=== PATIENT | female | born 1990 | race Caucasian/White ===

== ENCOUNTER 2019-08-19 17:46 | Emergency (ER) | payer OTHER ==
--- NOTE | 2019-08-19 18:04 | ER Document Report ---
ED Medical Screen (RME) - General Chief Complaint: Abdominal Pain Stated Complaint: ABDOMINAL PAIN Time Seen by Provider: 08/19/19 18:00 Mode of Arrival: Ambulatory Information source: Patient Notes: Patient presents stating that she is although has only had a urine test thus far. Patient reports pelvic cramping that started this evening. No vaginal bleeding or discharge. No urinary symptoms. Patient is G8, P0. I have greeted and performed a rapid initial assessment of this patient. A comprehensive ED assessment and evaluation of the patient, analysis of test res ults and completion of the medical decision making process will be conducted by additional ED providers. - Related Data Allergies/Adverse Reactions: morphine Allergy (Verified 08/19/19 17:56) Past Medical History - Social History Frequency of alcohol use: None Drug Abuse: None Physical Exam - Vital signs Vitals: Temp Pulse Resp BP Pulse Ox 97.8 F 68 18 134/77 H 98 08/19/19 17:50 08/19/19 17:50 08/19/19 17:50 08/19/19 17:50 08/19/19 17:50 - Abdominal Tenderness: Tender - Lower pelvic tenderness Course - Vital Signs Vital signs: Temp Pulse Resp BP Pulse Ox 97.8 F 68 18 134/77 H 98 08/19/19 17:50 08/19/19 17:50 08/19/19 17:50 08/19/19 17:50 08/19/19 17:50
[2019-08-19 18:34] LABS: ABSOLUTE EOSINOPHILS # (AUTO) 0.1 10^3/uL (0.0-0.6); ABSOLUTE LYMPHOCYTES (AUTO) 2.5 10^3/uL (0.5-4.7); ABSOLUTE MONOCYTES (AUTO) 0.5 10^3/uL (0.1-1.4); ABSOLUTE NEUT (AUTO) 4.6 10^3/uL (1.7-8.2); BASOPHILS % (AUTO) 0.3 % (0-2); HEMATOCRIT 43.1 % (36.0-47.0); HEMOGLOBIN 14.9 g/dL (12.0-15.5); LYMPHOCYTES % (AUTO) 32.4 % (13-45); MEAN CORPUSCULAR HEMOGLOBIN 30.7 pg (27.0-33.4); MEAN CORPUSCULAR HGB CONC 34.5 g/dL (32.0-36.0); MEAN CORPUSCULAR VOLUME 89 fl (80-97); MONOCYTES % (AUTO) 6.9 % (3-13); PLATELET COUNT 227 10^3/uL (150-450); RED BLOOD COUNT 4.84 10^6/uL (3.72-5.28); RED CELL DISTRIBUTION WIDTH 13.1 % (11.5-14.0); SEGMENTED NEUTROPHILS % (AUTO) 59.4 % (42-78); TOTAL CELLS COUNTED % (AUTO) 100 %; WHITE BLOOD COUNT 7.7 10^3/uL (4.0-10.5)
[2019-08-19 18:37] LABS: APPEARANCE,URINE CLEAR; BILIRUBIN,URINE NEGATIVE (NEGATIVE); COLOR,URINE YELLOW; GLUCOSE, URINE NEGATIVE (NEGATIVE); KETONES,URINE NEGATIVE (NEGATIVE); PROTEIN,URINE NEGATIVE (NEGATIVE); URINE SPECIFIC GRAVITY 1.008; UROBILINOGEN,URINE NEGATIVE mg/dL (<2.0)
--- NOTE | 2019-08-19 19:16 | RADIOLOGY REPORT (SQ) ---
EXAM DESCRIPTION: U/S OB TRANSVAGINAL W/O DOP COMPLETED DATE/TIME: 08/19/2019 7:05 pm REASON FOR STUDY: pelvic cramping COMPARISON: None. TECHNIQUE: Transvaginal static and realtime grayscale images acquired of the pelvis. Additional latrice cted spectral and color Doppler images recorded. All images stored on PACs. bHCG: Pending. CLINICAL DATES: LMP 07/21/2019. 4 weeks 1 day. LIMITATIONS: None. FINDINGS: No identifiable intrauterine gestation is seen. UTERUS: No masses. No anomalies. CERVICAL LENGTH: 2.1 cm. Closed. RIGHT ADNEXA: Normal ovary with normal vascular flow. 3.7 x 2.5 x 2.7 cm. There is a 19 x 17 x 15 m m cyst. No adnexal free fluid. No adnexal masses. LEFT ADNEXA: Normal ovary with normal vascular flow. 2.7 x 1.6 x 2.6 cm. No adnexal free fluid. No adnexal masses. FREE FLUID: None. OTHER: No other significant finding. IMPRESSION: There is no identifiable intrauterine at this time. Follow-up as clinically i ndicated. TECHNICAL DOCUMENTATION: JOB ID: [id number] [employer]- All Rights Reserved Reading location - IP/workstation name: [email or web address]
--- NOTE | 2019-08-19 21:25 | ER Document Report ---
ED General - General Chief Complaint: Abdominal Pain Stated Complaint: ABDOMINAL PAIN Time Seen by Provider: 08/19/19 18:00 Mode of Arrival: Ambulatory Notes: 29-year-old female who is a G8, P0 with 2 ectopic pregnancies both of which were treated with excisional surgery presents the emergency department complaining of a positive test at home and right lower quadrant abdominal pain. Last menstrual period was 07/21/2019. Patient states she was told that anytime she finds that she is she needs to immediately come to the emergency department to be checked for ectopic and to receive a shot of progesterone. Patient has been unable to contact her EXCHANGE ADMINISTRATOR in [place] and does not have local follow-up until a week from today with [place] [facility] EXCHANGE ADMINISTRATOR on Monday. She has not yet seen them. Patient does not know exactly what dose or what form of progesterone her prior EXCHANGE ADMINISTRATOR wanted her to have. Denies any vaginal bleeding, denies any nausea, denies any other symptoms. - Related Data Allergies/Adverse Reactions: morphine Allergy (Verified 08/19/19 17:56) Past Medical History - General Information source: Patient - Social History Smoking Status: Current Every Day Smoker Frequency of alcohol use: None Drug Abuse: None Family History: Reviewed & Not Pertinent Patient has suicidal ideation: No Patient has homicidal ideation: No Past Surgical History: Reports: Hx Oral Surgery, Hx Tonsillectomy Review of Systems - Review of Systems Constitutional: No symptoms reported Gastrointestinal: See HPI Genitourinary: No symptoms reported Female Genitourinary: See HPI -: Yes All other systems reviewed and negative Physical Exam - Vital signs Vitals: Temp Pulse Resp BP Pulse Ox 97.8 F 68 18 134/77 H 98 08/19/19 17:50 08/19/19 17:50 08/19/19 17:50 08/19/19 17:50 08/19/19 17:50 Interpretation: Normal - Notes Notes: GENERAL: Alert, interacts well. No acute distress. HEAD: Normocephalic, atraumatic EYES: Pupils equal, round and reactive to light, extraocular movements intact. ENT: Oral mucosa moist, tongue midline. NECK: Full range of motion, supple, trachea midline. LUNGS: Clear to auscultation bilaterally, no wheezes, rales or rhonchi, no respiratory distress. HEART: Regular rate and rhythm, no murmurs, gallops, rubs. ABDOMEN: Soft, nontender, nondistended, bowel sounds present in all 4 quadrants. EXTREMITIES: Moves all 4 extremities spontaneously, no edema, radial and dorsalis pedis pulses 2/4 bilaterally. No cyanosis. NEUROLOGICAL: Alert and oriented x3, normal speech. PSYCH: Normal mood, normal affect. SKIN: Warm, Dry, normal turgor, no rashes or lesions noted. Course - Re-evaluation Re-evalutation: 08/19/19 21:23 CBC unremarkable, quantitative hCG is 52.43, urinalysis unremarkable, patient is having no bleeding so she would not need RhoGam. OB ultrasound visualizes both ovaries and does not see any signs of ectopic or intrauterine . With her quant so low we would not expect to see an IUP or an ectopic at this point anyway. Patient is stable, no indication that she has a ruptured ectopic at this time. Patient will need to return in 48 hours to have a repeat quant performed. Typically would have they will do this as an outpatient however as her repeat quant will not be due until Monday evening just prior to I am having her return to the emergency department for repeat quant and recheck. I did discuss the case with Dr. 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 He states that he can use 200 mg of progesterone vaginally twice a day. Patient will be discharged to home. - Vital Signs Vital signs: Temp Pulse Resp BP Pulse Ox 97.8 F 68 18 134/77 H 98 08/19/19 17:50 08/19/19 17:50 08/19/19 17:50 08/19/19 17:50 08/19/19 17:50 - Laboratory Result Diagrams: 08/19/19 18:11 Laboratory results interpreted by me: 08/19/19 18:11 Beta HCG, Quant 52.43 H Discharge - Discharge Clinical Impression: Pelvic pain affecting in first trimester, antepartum Condition: Stable Disposition: HOME, SELF-CARE Additional Instructions: Today your quantitative hCG was 52. You will need to return in approximately 48 to 72 hours to have your hormone level rechecked. Today we did not see any signs of intrauterine or ectopic on ultrasound. I have discussed your case with her EXCHANGE ADMINISTRATOR and he recommends starting vaginal progesterone 200 mg in the vagina twice a day until you follow-up with your EXCHANGE ADMINISTRATOR as an outpatient. Please return for worsening pain, vaginal bleeding, lightheadedness or any new or concerning symptoms. Prescriptions: Progesterone, Micronized [Prometrium] 200 mg VG BID #30 capsule Forms: Follow-Up Laboratory Testing
[2019-08-19 21:45] VITALS: BP 116/70
== END 2019-08-19 21:45 | disposition home or self-care (01) ==
LOC: ER 17:46
DX: O26.891 Other specified pregnancy related conditions, first trimester (principal); R10.2 Pelvic and perineal pain; R10.31 Right lower quadrant pain; O99.331 Smoking (tobacco) complicating pregnancy, first trimester; F17.200 Nicotine dependence, unspecified, uncomplicated; Z88.5 Allergy status to narcotic agent; Z88.6 Allergy status to analgesic agent; Z87.59 Personal history of other complications of pregnancy, childbirth and the puerperium; Z3A.01 Less than 8 weeks gestation of pregnancy
CPT/HCPCS: 36415; 76817; 81001; 84702; 85025; 86900; 86901; 99284

== ENCOUNTER → 2019-08-21 | Outpatient (CLI) | payer OTHER | LOC: LAB 18:54 | PROVIDERS: ATTEND Emergency Medicine | DX: O26.899 Other specified pregnancy related conditions, unspecified trimester (principal) | CPT/HCPCS: 36415; 84702 ==

== ENCOUNTER 2019-08-28 21:32 | Day surgery (SDC) | payer OTHER ==
[2019-08-28] MEDS ORDERED: ONDANSETRON HCL INJ/PF 4 MG/2 ML SDV IV ONE (23:06)
[2019-08-28] MEDS ORDERED: FENTANYL CITRATE INJ/PF 100 MCG/2 ML AMPUL IV ONE ×2 (23:06→23:57)
--- NOTE | 2019-08-28 23:12 | ER Document Report ---
ED Medical Screen (RME) - General Chief Complaint: Abdominal Pain Stated Complaint: POSSIBLE MISCARRIAGE 5 WEEKS Time Seen by Provider: 08/28/19 22:58 Notes: 29-year-old G8, P0 female with history of ectopic x2 with a salpingectomy unknown side presents to the emergency department in acute distress with abdominal pain, vaginal bleeding that started this evening. Patient LMP July 21, had a positive test here previous Monday, was seen here subsequently for abdominal pain and her hCG level doubled in the interval time. Patient's pain is more focused on the left side, has nausea vomiting. Exam: In acute distress hunched over on the ground leaning against the chair, lungs are clear in all baxter, unable to obtain abdominal exam I have greeted and performed a rapid initial assessment of this patient. A comprehensive ED assessment and evaluation of the patient, analysis of test results and completion of medical decision making process will be conducted by an additional ED providers. TRAVEL OUTSIDE OF THE [place] IN LAST 30 DAYS: No - Related Data Allergies/Adverse Reactions: morphine Allergy (Verified 08/19/19 17:56) Past Medical History Past Surgical History: Reports: Hx Oral Surgery, Hx Tonsillectomy Physical Exam - Vital signs Vitals: Temp Pulse Resp BP Pulse Ox 98 F 77 22 H 113/77 99 08/28/19 22:12 08/28/19 22:12 08/28/19 22:12 08/28/19 22:12 08/28/19 22:12 Course - Vital Signs Vital signs: Temp Pulse Resp BP Pulse Ox 98 F 77 22 H 113/77 99 08/28/19 22:57 08/28/19 22:57 08/28/19 22:57 08/28/19 22:57 08/28/19 22:57
[2019-08-28 23:41] LABS: ABSOLUTE EOSINOPHILS # (AUTO) 0.1 10^3/uL (0.0-0.6); ABSOLUTE LYMPHOCYTES (AUTO) 1.7 10^3/uL (0.5-4.7); ABSOLUTE MONOCYTES (AUTO) 0.5 10^3/uL (0.1-1.4); ABSOLUTE NEUT (AUTO) 7.9 10^3/uL (1.7-8.2); BASOPHILS % (AUTO) 0.1 % (0-2); EOSINOPHILS % (AUTO) 0.5 % (0-6); HEMATOCRIT 38.7 % (36.0-47.0); HEMOGLOBIN 13.5 g/dL (12.0-15.5); LYMPHOCYTES % (AUTO) 16.5 % (13-45); MEAN CORPUSCULAR HEMOGLOBIN 30.8 pg (27.0-33.4); MEAN CORPUSCULAR HGB CONC 34.9 g/dL (32.0-36.0); MEAN CORPUSCULAR VOLUME 88 fl (80-97); MONOCYTES % (AUTO) 5.1 % (3-13); PLATELET COUNT 234 10^3/uL (150-450); RED BLOOD COUNT 4.39 10^6/uL (3.72-5.28); RED CELL DISTRIBUTION WIDTH 12.6 % (11.5-14.0); SEGMENTED NEUTROPHILS % (AUTO) 77.8 % (42-78); TOTAL CELLS COUNTED % (AUTO) 100 %; WHITE BLOOD COUNT 10.2 10^3/uL (4.0-10.5)
[2019-08-28 23:52] LABS: ALBUMIN 4.6 g/dL (3.5-5.0); ALKALINE PHOSPHATASE 42 U/L (38-126); ANION GAP 12 (5-19); ASPARTATE AMINO TRANSFERASE 21 U/L (14-36); BILIRUBIN,DIRECT 0.1 mg/dL (0.0-0.4); BILIRUBIN,TOTAL 0.7 mg/dL (0.2-1.3); BLOOD UREA NITROGEN 9 mg/dL (7-20); CALCIUM 10.3 mg/dL (8.4-10.2); CARBON DIOXIDE 24 mmol/L (22-30); CHLORIDE 103 mmol/L (98-107); GLUCOSE 118 mg/dL (75-110); TOTAL PROTEIN 7.7 g/dL (6.3-8.2)
[2019-08-28] MEDS ORDERED: NORMAL SALINE 1000 ML 1,000 ML IV ONE (23:57)
--- NOTE | 2019-08-29 00:01 | ER Document Report ---
ED GI/ - General Chief Complaint: Abdominal Pain Stated Complaint: POSSIBLE MISCARRIAGE 5 WEEKS Time Seen by Provider: 08/28/19 22:58 Notes: Patient is a 29-year-old female, with a history of 2 ectopic pregnancies and a previous salpingectomy (unknown side per patient) that comes emergency department for chief complaint of sudden onset sharp pain in the lower abdomen at about 6:30 PM tonight, she states this is worsened and now she is getting a swelling sensation. She got nausea and she felt lightheaded in the waiting room as well. Patient has had positive test with low hCG, LMP was July 21. She normally follows with [facility] DIRECT[facility] but is not yet established with this . She denies medical history otherwise. TRAVEL OUTSIDE OF THE [place] IN LAST 30 DAYS: No - Related Data Allergies/Adverse Reactions: morphine Allergy (Verified 08/19/19 17:56) Past Medical History - General Information source: Patient - Social History Smoking Status: Former Smoker Frequency of alcohol use: None Drug Abuse: None Lives with: Family Family History: Reviewed & Not Pertinent Patient has suicidal ideation: No Patient has homicidal ideation: No Past Surgical History: Reports: Hx Gynecologic Surgery - Fallopian tube removal with ectopic , Hx Oral Surgery, Hx Tonsillectomy Review of Systems - Review of Systems Constitutional: No symptoms reported EENT: No symptoms reported Cardiovascular: No symptoms reported Respiratory: No symptoms reported Gastrointestinal: See HPI Genitourinary: See HPI Female Genitourinary: See HPI Musculoskeletal: No symptoms reported Skin: No symptoms reported Hematologic/Lymphatic: No symptoms reported Neurological/Psychological: No symptoms reported Physical Exam - Vital signs Vitals: Temp Pulse Resp BP Pulse Ox 98 F 77 22 H 113/77 99 08/28/19 22:12 08/28/19 22:12 08/28/19 22:12 08/28/19 22:12 08/28/19 22:12 - Notes Notes: GENERAL: Alert, appears uncomfortable and is trying not to move HEAD: Normocephalic, atraumatic. EYES: Pupils equal, round, and reactive to light. Extraocular movements intact. ENT: Oral mucosa moist, tongue midline. Oropharynx unremarkable. Airway patent. LUNGS: Clear to auscultation bilaterally, no wheezes, rales, or rhonchi. No respiratory distress. HEART: Regular rate and rhythm. No murmur ABDOMEN: There is some guarding in the general lower abdomen with peritoneal signs. Obvious pain with any movement. Upper abdomen benign. GENITOURINARY: Deferred EXTREMITIES: Moves all 4 extremities spontaneously. No edema, normal radial and dorsalis pedis pulses bilaterally. No cyanosis. BACK: no cervical, thoracic, lumbar midline tenderness. No saddle anesthesia, normal distal neurovascular exam. Moves all extremities in full range of motion. NEUROLOGICAL: Alert and oriented x3. Normal speech. Cranial nerves II through XII grossly intact. SKIN: Slightly pale Course - Re-evaluation Re-evalutation: Patient is very tender on exam in the general lower abdomen, she is clearly uncomfortable in appearance, she actually appears to have peritoneal signs as well. Clinical picture and history is very concerning for ruptured ectopic . Patient placed on monitor, obtained IV access, fortunately patient's blood pressure is unremarkable and she is not tachycardic. She is slightly pale in appearance. CBC unremarkable with hemoglobin of 13.5, chemistry unremarkable. hCG is concerning at greater than 1700, ultrasound appears to show a large amount of free fluid and no IUP, report is officially pending. Discussed with patient, discussed with her likely ectopic , she be kept n.p.o. and I will contact NEWS LIBRARY DIRECTOR. Ultrasound showing no intrauterine and large pelvic fluid. I called and spoke with Dr. johnson, she states she will see the patient. Dr. Johnson has seen the patient and is taken the patient to the operating room. - Vital Signs Vital signs: Temp Pulse Resp BP Pulse Ox 97.4 F 71 18 107/57 L 100 08/29/19 06:09 08/29/19 06:56 08/29/19 06:56 08/29/19 06:56 08/29/19 06:56 - Laboratory Result Diagrams: 08/28/19 23:17 08/28/19 23:17 Laboratory results interpreted by me: 08/28/19 08/28/19 23:11 23:17 Glucose 118 H Calcium 10.3 H Beta HCG, Quant 1762.20 H Urine Ketones 20 H Urine Blood MODERATE H Discharge - Discharge Clinical Impression: Ruptured ectopic Condition: Good Disposition: ADMITTED INPATIENT Admitting Provider: [facility] Unit Admitted: OR
--- NOTE | 2019-08-29 00:23 | RADIOLOGY REPORT (SQ) ---
CLINICAL HISTORY: abd pain, vag bleeding, +preg, hx ectopic x 2 COMPARISON: None. TECHNIQUE: US TRANSVAGINAL on 08/28/2019 11:07 PM [facility] FINDINGS: Uterus measures 7.6 cm. There is no evidence of IUP. There is moderate free pelvic fluid, somewhat complex. Both ovaries are unremarkable with patent flow. IMPRESSION: No evidence of IUP. Complex free pelvic fluid raises the possibility of ruptured ectopic , although definitive ectopic is not clearly seen. Correlate with beta hCG levels.
[2019-08-29 00:33] LABS: APPEARANCE,URINE CLOUDY; BILIRUBIN,URINE NEGATIVE (NEGATIVE); COLOR,URINE YELLOW; GLUCOSE, URINE NEGATIVE (NEGATIVE); KETONES,URINE 20 mg/dL (NEGATIVE); LEUKOCYTE ESTERASE,URINE NEGATIVE (NEGATIVE); NITRITE,URINE NEGATIVE (NEGATIVE); PROTEIN,URINE NEGATIVE (NEGATIVE); URINE SPECIFIC GRAVITY 1.013; UROBILINOGEN,URINE NEGATIVE mg/dL (<2.0)
[2019-08-29] MEDS ORDERED: MIDAZOLAM 2 MG/2 ML INJ ONE (01:27)
[2019-08-29] MEDS ORDERED: PROPOFOL INJ 200 MG/20 ML VIAL IV ONE (01:27)
[2019-08-29] MEDS ORDERED: ONDANSETRON HCL INJ/PF 4 MG/2 ML SDV ONE (01:27)
[2019-08-29] MEDS ORDERED: DEXAMETHASONE SOD PHOSPHATE INJ 4 MG/1 ML VIAL ONE (01:27)
[2019-08-29] MEDS ORDERED: FENTANYL CITRATE INJ/PF 250 MCG/5 ML AMPULE ONE (01:27)
--- NOTE | 2019-08-29 01:31 | PDOC H&P ---
History of Present Illness Admission Date/PCP: kendrick Patient complains of: Abdominal pain History of Present Illness: LEONARDO ALMONTE is a 29 year old G8, P0 presented to [facility] ED complaining of abdominal pain which started at 6:30 PM. Patient stated that she started bleeding at 530 which lasted approximately 45 minutes. This patient has a known early and usually follows up with [facility]. Her last menstrual period was July 21. She states that she is Rh-. She gives history of 3 ruptured ectopic pregnancies and 4 spontaneous abortions. Past Medical History LMP: 07/21/19 Past Surgical History Past Surgical History: Reports: Tonsillectomy, Other - Laparoscopic evacuation of ectopic x3 Social History Lives with: Family Smoking Status: Former Smoker Electronic Cigarette use?: No Frequency of Alcohol Use: Rare Hx Recreational Drug Use: No Family History Family History: Reviewed & Not Pertinent Parental Family History Reviewed: Yes Children Family History Reviewed: NA Sibling(s) Family History Reviewed.: NA Medication/Allergy Home Medications: Progesterone, Micronized [Prometrium] 200 mg VG BID #30 capsule 08/19/19 Allergies/Adverse Reactions: morphine Allergy (Verified 08/19/19 17:56) Review of Systems Constitutional: PRESENT: as per HPI Cardiovascular: ABSENT: as per HPI, chest pain, dyspnea on exertion, edema, orthropnea, palpitations, other Respiratory: ABSENT: as per HPI, cough, dyspnea, hemoptysis, sputum, other Gastrointestinal: PRESENT: abdominal pain Physical Exam - Physical Exam Vital Signs: Temp Pulse Resp BP Pulse Ox 97.8 F 82 17 135/76 H 99 08/29/19 01:09 08/29/19 01:09 08/29/19 01:09 08/29/19 01:09 08/29/19 01:09 Intake & Output 08/27/19 08/28/19 08/29/19 06:59 06:59 06:59 Weight 52.163 kg General appearance: PRESENT: no acute distress Respiratory exam: PRESENT: clear to auscultation john Cardiovascular exam: PRESENT: RRR GI/Abdominal exam: PRESENT: normal bowel sounds, soft - Diffuse tenderness Extremities exam: ABSENT: calf tenderness, clubbing, full ROM, joint swelling, pedal edema, tenderness, +1 edema, +2 edema, other Result Laboratory Results: 08/28/19 23:17 08/28/19 23:17 08/28/19 08/28/19 08/28/19 23:11 23:17 23:17 WBC 10.2 RBC 4.39 Hgb 13.5 Hct 38.7 MCV 88 MCH 30.8 MCHC 34.9 RDW 12.6 Plt Count 234 Seg Neutrophils % 77.8 Sodium 139.2 Potassium 4.0 Chloride 103 Carbon Dioxide 24 Anion Gap 12 BUN 9 Creatinine 0.66 Est GFR ( Amer) > 60 Glucose 118 H Calcium 10.3 H Total Bilirubin 0.7 AST 21 Alkaline Phosphatase 42 Total Protein 7.7 Albumin 4.6 Urine Color YELLOW Urine Appearance CLOUDY Urine pH 8.0 Ur Specific [place] 1.013 Urine Protein NEGATIVE Urine Glucose (UA) NEGATIVE Urine Ketones 20 H Urine Blood MODERATE H Urine Nitrite NEGATIVE Ur Leukocyte Esterase NEGATIVE Urine WBC (Auto) 5 Urine RBC (Auto) 10 Blood Type 08/28/19 23:17 WBC RBC Hgb Hct MCV MCH MCHC RDW Plt Count Seg Neutrophils % Sodium Potassium Chloride Carbon Dioxide Anion Gap BUN Creatinine Est GFR ( Amer) Glucose Calcium Total Bilirubin AST Alkaline Phosphatase Total Protein Albumin Urine Color Urine Appearance Urine pH Ur Specific [place] Urine Protein Urine Glucose (UA) Urine Ketones Urine Blood Urine Nitrite Ur Leukocyte Esterase Urine WBC (Auto) Urine RBC (Auto) Blood Type O NEGATIVE Impressions: Transvaginal US 08/28/19 23:07 IMPRESSION: No evidence of IUP. Complex free pelvic fluid raises the possibility of ruptured ectopic , although definitive ectopic is not clearly seen. Correlate with beta hCG levels. Assessment & Plan - Diagnosis (1) Ruptured ectopic Is this a current diagnosis for this admission?: Yes (2) Type O blood, Rh negative Is this a current diagnosis for this admission?: Yes (3) with poor obstetric history Is this a current diagnosis for this admission?: Yes - Time Time Spent: 30 to 50 Minutes Anticipated discharge: Home Within: within 24 hours - Plan Summary Plan Summary: 1. Consent for diagnostic laparoscopy 2. Hold 2 units of packed red blood cells 3. RhoGam to be administered prior to discharge
[2019-08-29] MEDS ORDERED: BUPIVACAINE HCL 0.25 % INJ/PF (2.5 MG/1 ML) 30 ML VIAL ONE (01:48)
[2019-08-29] MEDS ORDERED: ONDANSETRON HCL INJ/PF 4 MG/2 ML SDV IV PRN (02:26)
[2019-08-29] MEDS ORDERED: PROMETHAZINE HCL INJ 25 MG/1 ML VIAL IV PRN ×2 (02:26)
[2019-08-29] MEDS ORDERED: DIPHENHYDRAMINE HCL 50 MG/ML VIAL IV PRN (02:26)
[2019-08-29] MEDS ORDERED: MEPERIDINE HCL/PF INJ 25 MG/1 ML DISP.SYRIN IV PRN (02:26)
[2019-08-29] MEDS ORDERED: FENTANYL CITRATE INJ/PF 100 MCG/2 ML AMPUL IV PRN ×3 (02:26)
[2019-08-29] MEDS ORDERED: KETOROLAC TROMETHAMINE 60 MG/2 ML SDV ONE (03:30)
[2019-08-29] MEDS ORDERED: ACETAMINOPHEN 1,000 MG/100 ML RTUPB IV ONE ×2 (03:31→05:00)
[2019-08-29] MEDS: HYDROMORPHONE HCL INJ/PF 2 MG/ML AMPULE ONE ×4 (03:32→03:50)
[2019-08-29] MEDS ORDERED: RINGERS SOLUTION,LACTATED 1,000 ML IV PRN (03:34)
[2019-08-29] MEDS ORDERED: OXYCODONE-ACETAMINOPHEN 5-325 MG TABLET PO PRN ×2 (03:34)
[2019-08-29] MEDS ORDERED: KETOROLAC TROMETHAMINE INJ/PF 30 MG/1 ML SDV IV PRN (03:34)
[2019-08-29] MEDS ORDERED: IBUPROFEN 800 MG TABLET PO PRN (03:34)
--- NOTE | 2019-08-29 03:34 | Operative Report ---
Operative Report DATE OF SURGERY: 08/29/19 PREOPERATIVE DIAGNOSIS: 1. Possible ruptured ectopic, unspecified adnexa. 2. O- blood type. 3. Poor obstetric history. 4. History of ectopic x3 POSTOPERATIVE DIAGNOSIS: Same plus ruptured left ectopic OPERATION: Diagnostic laparoscopy with left partial salpingectomy SURGEON: EDITH MONSALVE ANESTHESIA: GA TISSUE REMOVED OR ALTERED: Left partial fallopian tube with ectopic COMPLICATIONS: none QUANTITATIVE BLOOD LOSS: 50 INTRAOPERATIVE FINDINGS: Ruptured left ectopic; Absent right fallopian tube; normal bilateral ovaries and normal uterus PROCEDURE: The patient was taken to the operating room where general anesthesia was ob tained without difficulty. She was then placed in dorsal supine lithotomy position and prepped and draped in the normal sterile fashion. [place] speculum was then placed in the patient's vagina and a sponge stick with a Ray-Brianne was placed in the vagina to provide a means of manipulation of the uterus. I was unsure whether she truly had a ruptured ectopic , since the adnexa was not specified. The speculum was then removed from the patient's cervix and vagina. Attention was then turned to the patient's abdomen where a 5 mm skin incision was then made in the umbilicus. The Optiview trocar with 0 laparoscope was then advanced without difficulty under direct visualization with the Optiview trocar. This was performed while tenting the abdominal wall. Intraperitoneal placement was confirmed by the direct visualization. Pneumoperitoneum was then obtained with approximately 4 L carbon dioxide gas. Survey of the patient's abdomen and pelvis revealed a ruptured left ectopic. There was approximately 50 mL's of blood in the posterior cul-de-sac. It was noted that the right fallopian tube was surgically absent. Two 5 mm lateral ports were placed under direct visualization. The umbilical port was then converted to an 11 mm port. The left fallopian tube was then identified, which contained the ruptured ectopic. It was followed out to the fimbriated end. A PDS Endoloop x 2 was placed at the fimbriated end, abutting the ovary. The section of tube which contained the ectopic was transected and the Endoloops were cut. Hemostasis was noted. The left partial tube, which contained ectopic, was placed in an Endo KELLY bag. The abdomen and pelvis were then copiously irrigated with warm normal saline. The operative site was visualized and noted to be hemostatic. Laparoscopic pictures were taken before and after the procedure. The CO2 gas was then turned off and allowed to escape from the patient's abdomen. All trocars were then removed. The fascia of the umbilical port was closed with 0 Vicryl. The skin at all trocar sites were closed with 4-0 Vicryl in a subcuticular fashion with overlying Dermabond. No antibiotics were indicated for this procedure. After completion of skin closure of the trocar sites, attention was then turned to the vagina where the unstick was removed. Sponge, lap, needle and instrument counts were correct 3. The patient tolerated the procedure well and was taken to the recovery area awake and in stable condition.
[2019-08-29] MEDS ORDERED: HYDROMORPHONE HCL INJ/PF 2 MG/ML AMPULE IV PRN ×2 (03:35→04:50)
[2019-08-29] MEDS ORDERED: KETOROLAC TROMETHAMINE INJ/PF 30 MG/1 ML SDV ONE (03:36)
--- NOTE | 2019-08-29 06:22 | PDOC DISCHARGE SUMMARY ---
Impression - Admit/DC Date/PCP Admission Date/Primary Care Provider: 08/29/19 01:13 Discharge Date: 08/29/19 - Discharge Diagnosis (1) Ruptured ectopic Is this a current diagnosis for this admission?: Yes (2) Type O blood, Rh negative Is this a current diagnosis for this admission?: Yes (3) with poor obstetric history Is this a current diagnosis for this admission?: Yes - Additional Information Resuscitation Status: Full Code Referrals: EDITH BAKER DO [ACTIVE STAFF] - Home Medications: Progesterone, Micronized [Prometrium] 200 mg VG BID #30 capsule 08/19/19 History of Present Illiness History of Present Illness: LEONARDO ALMONTE is a 29 year old G8, P0 presented to [facility] ED complaining of abdominal pain which started at 6:30 PM. Patient stated that she started bleeding at 530 which lasted approximately 45 minutes. This patient has a known early and usually follows up with [place]. Her last menstrual period was July 21. She states that she is Rh-. She gives history of 3 ruptured ectopic pregnancies and 4 spontaneous abortions. Hospital Course Hospital Course: The patient was taken to the operating suite where a diagnostic laparoscopy with left partial salpingectomy with ectopic was excised. She tolerated the procedure well. Patient was sent to the floor, secondary to the fact that the surgery was performed around 0. Otherwise, she was stable for discharge. Physical Exam - Physical Exam Vital Signs: Temp Pulse Resp BP Pulse Ox 98.6 F 74 16 106/51 L 100 08/29/19 05:28 08/29/19 05:28 08/29/19 05:28 08/29/19 05:28 08/29/19 05:28 Intake & Output 08/27/19 08/28/19 08/29/19 06:59 06:59 06:59 Intake Total 2700 Output Total 1150 Balance 1550 Weight 52.163 kg General appearance: PRESENT: no acute distress Respiratory exam: PRESENT: clear to auscultation john Cardiovascular exam: PRESENT: RRR GI/Abdominal exam: PRESENT: normal bowel sounds, soft - Appropriate tenderness; all port site incisions clean/dry/intact Extremities exam: ABSENT: calf tenderness, clubbing, full ROM, joint swelling, pedal edema, tenderness, +1 edema, +2 edema, other Results Laboratory Results: WBC 10.2 10^3/uL (4.0-10.5) 08/28/19 23:17 RBC 4.39 10^6/uL (3.72-5.28) 08/28/19 23:17 Hgb 13.5 g/dL (12.0-15.5) 08/28/19 23:17 Hct 38.7 % (36.0-47.0) 08/28/19 23:17 MCV 88 fl (80-97) 08/28/19 23:17 MCH 30.8 pg (27.0-33.4) 08/28/19 23:17 MCHC 34.9 g/dL (32.0-36.0) 08/28/19 23:17 RDW 12.6 % (11.5-14.0) 08/28/19 23:17 Plt Count 234 10^3/uL (150-450) 08/28/19 23:17 Lymph % (Auto) 16.5 % (13-45) 08/28/19 23:17 [place] % (Auto) 5.1 % (3-13) 08/28/19 23:17 Eos % (Auto) 0.5 % (0-6) 08/28/19 23:17 Baso % (Auto) 0.1 % (0-2) 08/28/19 23:17 Absolute Neuts (auto) 7.9 10^3/uL (1.7-8.2) 08/28/19 23:17 Absolute Lymphs (auto) 1.7 10^3/uL (0.5-4.7) 08/28/19 23:17 Absolute Monos (auto) 0.5 10^3/uL (0.1-1.4) 08/28/19 23:17 Absolute Eos (auto) 0.1 10^3/uL (0.0-0.6) 08/28/19 23:17 Absolute Basos (auto) 0.0 10^3/uL (0.0-0.2) 08/28/19 23:17 Seg Neutrophils % 77.8 % (42-78) 08/28/19 23:17 Sodium 139.2 mmol/L (137-145) 08/28/19 23:17 Potassium 4.0 mmol/L (3.6-5.0) 08/28/19 23:17 Chloride 103 mmol/L (98-107) 08/28/19 23:17 Carbon Dioxide 24 mmol/L (22-30) 08/28/19 23:17 Anion Gap 12 (5-19) 08/28/19 23:17 BUN 9 mg/dL (7-20) 08/28/19 23:17 Creatinine 0.66 mg/dL (0.52-1.25) 08/28/19 23:17 Est GFR ( Amer) > 60 (>60) 08/28/19 23:17 Est GFR (MDRD) Non-Af > 60 (>60) 08/28/19 23:17 Glucose 118 mg/dL (75-110) H 08/28/19 23:17 Calcium 10.3 mg/dL (8.4-10.2) H 08/28/19 23:17 Total Bilirubin 0.7 mg/dL (0.2-1.3) 08/28/19 23:17 Direct Bilirubin 0.1 mg/dL (0.0-0.4) 08/28/19 23:17 Neonat Total Bilirubin Not Reportable 08/28/19 23:17 Neonat Direct Bilirubin Not Reportable 08/28/19 23:17 Neonat Indirect Bili Not Reportable 08/28/19 23:17 AST 21 U/L (14-36) 08/28/19 23:17 ALT 10 U/L (<35) 08/28/19 23:17 Alkaline Phosphatase 42 U/L (38-126) 08/28/19 23:17 Total Protein 7.7 g/dL (6.3-8.2) 08/28/19 23:17 Albumin 4.6 g/dL (3.5-5.0) 08/28/19 23:17 Beta HCG, Quant 1762.20 mIU/mL (0.0-6.15) H 08/28/19 23:17 Total Beta HCG POSITIVE (NEGATIVE) 08/28/19 23:17 Urine Color YELLOW 08/28/19 23:11 Urine Appearance CLOUDY 08/28/19 23:11 Urine pH 8.0 (5.0-9.0) 08/28/19 23:11 Ur Specific [place] 1.013 08/28/19 23:11 Urine Protein NEGATIVE mg/dL (NEGATIVE) 08/28/19 23:11 Urine Glucose (UA) NEGATIVE mg/dL (NEGATIVE) 08/28/19 23:11 Urine Ketones 20 mg/dL (NEGATIVE) H 08/28/19 23:11 Urine Blood MODERATE (NEGATIVE) H 08/28/19 23:11 Urine Nitrite NEGATIVE (NEGATIVE) 08/28/19 23:11 Urine Bilirubin NEGATIVE (NEGATIVE) 08/28/19 23:11 Urine Urobilinogen NEGATIVE mg/dL (<2.0) 08/28/19 23:11 Ur Leukocyte Esterase NEGATIVE (NEGATIVE) 08/28/19 23:11 Urine WBC (Auto) 5 /HPF 08/28/19 23:11 Urine RBC (Auto) 10 /HPF 08/28/19 23:11 Squamous Epi Cells Auto 5 /HPF 08/28/19 23:11 Urine Mucus (Auto) OCC /LPF 08/28/19 23:11 Urine Ascorbic Acid NEGATIVE (NEGATIVE) 08/28/19 23:11 Blood Type O NEGATIVE 08/28/19 23:17 Antibody Screen NEGATIVE 08/28/19 23:17 Rhogam Indicated RHOGAM REQUESTED 08/28/19 23:17 Impressions: Transvaginal US 08/28/19 23:07 IMPRESSION: No evidence of IUP. Complex free pelvic fluid raises the possibility of ruptured ectopic , although definitive ectopic is not clearly seen. Correlate with beta hCG levels. Plan Plan of Treatment: 1. Discharge home 2. Follow-up in the office in 2 weeks for postop exam or sooner if needed 3. Prescriptions for [place] and ibuprofen given Time Spent: Greater than 30 Minutes Stroke Is this a Stroke Patient?: No Acute Heart Failure - Is this a Heart Failure Patient?: No
[2019-08-29 09:57] VITALS: BP 114/67
[2019-08-29] MEDS ORDERED: SUCCINYLCHOLINE CHLORIDE INJ 200 MG/10 ML VIAL ONE (18:34)
[2019-08-29] MEDS ORDERED: ROCURONIUM BROMIDE INJ 50 MG/5 ML VIAL IV ONE (18:34)
== END 2019-08-29 10:25 | disposition home or self-care (01) ==
LOC: ER 21:32 → UNDOADMIN 08-29 01:13 → EH 08-29 01:13 → OROUT 08-29 01:13 → 2N 08-29 04:35 → EH 08-29 04:35 → OROUT 08-29 10:25 → UNDODISIN 08-29 10:25 → ER 08-29 10:25
DX: O00.102 Left tubal pregnancy without intrauterine pregnancy (principal); Z67.40 Type O blood, Rh positive; Z87.891 Personal history of nicotine dependence; Z88.5 Allergy status to narcotic agent
CPT/HCPCS: 99285; 86900; 86901; 36415; 86850; 84702; 85025; 80053; 81001; 88305 ×2; 76817; 93976; 00840; 59151; J2790; J2250; J3490; J1100; J3010 ×2; J1885; J1170; J0330; J2405; J7030; J2704; J0131; 840